=== PATIENT | male | born 1955 | race Caucasian/White ===

== ENCOUNTER → 2018-07-05 07:38 | Day surgery (SDC) | payer BC ==
--- NOTE | 2018-07-01 20:11 | HP ---
CC: Dr. Fito Bernstein; Dr. Florentin Gomes * ADMITTING HISTORY AND PHYSICAL: DATE OF ADMISSION: 07/05/18 ADMITTING DIAGNOSES: 1. Gross hematuria. 2. Bladder tumor. PLANNED PROCEDURE: Transurethral resection of bladder tumor, possible left stent insertion. SURGEON: Dr. Gomes. HISTORY OF PRESENT ILLNESS: Deven Silveira is a 63-year-old former smoker who has had episodic gross hematuria for several months, but did not seek attention up until recently. Cystoscopy revealed what appears to be superficial bladder tumors (although appear high-grade on visual appearance) in the left lateral wall of the bladder with a blood clot adherent to one of the tumors making it difficult to assess the size of the tumors. A CT urogram was obtained which did not reveal any evidence of upper tract disease and he is known to have a left-sided bladder diverticulum, which did not have any lesions or tumors within it on office cystoscopy. PAST MEDICAL HISTORY: Significant for: 1. Hypertension. 2. High cholesterol. 3. Asthma. MEDICATIONS ON ADMISSION: 1. Verapamil 80 mg twice a day. 2. Bupropion 150 mg twice a day. 3. Zyrtec p.r.n. 4. Montelukast 10 mg daily. 5. Beclovent inhaler p.r.n. 6. Rosuvastatin 5 mg daily. ALLERGIES: No known drug allergies. SOCIAL HISTORY: Smoking History: He is a former smoker, who quit 25 years ago. PHYSICAL EXAMINATION GENERAL: Reveals a pleasant middle-aged gentleman. VITAL SIGNS: Blood pressure is 112/80, pulse 103 per minute and regular, oxygen saturation 98% on room air. LUNGS: Clear bilaterally. CARDIOVASCULAR EXAM: Regular rate and rhythm. S1, S2. ABDOMEN: Soft without masses. IMPRESSION: A 63-year-old gentleman with bladder tumor. PLAN/RECOMMENDATIONS: Planned procedure is transurethral resection of bladder tumor, possible left stent insertion. [id number]/[facility] #: [id number] [facility]
[~2018-07-05 07:38] MED LIST: Acetaminophen TAB* 325 MG ONE; Acetaminophen TAB* 325 MG PO ONE; Buffered Lidocaine 1% SYRIN* 1 ML/SYRINGE INTRADERM ONE; Chloroprocaine 2%* 20 ML VIAL ONE; Dexamethasone IV* 4 MG/ML 1 ML (4 MG) ONE; DiMENhydriNATE IV* 50 MG/ML VIAL IV PUSH PRN; Famotidine IV* 10 MG/ML 2 ML (20 mg) ONE; Furosemide IV* 10 MG/ML 2 ML VIAL (20 MG) ONE; HYDROcodone/ACETAMIN 5-325 MG* 1 TAB ONE; HYDROcodone/ACETAMIN 5-325 MG* 1 TAB PO PRN; Iohexol 180 (CONTRAST) 10 ML SDV IV ONE; Lactated Ringers 1000 ML Bag* 1,000 ML IV SCH; Levalbuterol 0.63MG/3ML NEB* UNIT OF USE INH PRN; Midazolam* 1 MG/ML 2 ML VIAL (2 MG) ONE; Naloxone* 0.4 MG/ML 1 ML VIAL IV PRN; Ondansetron INJ* 2 MG/ML VIAL IV PRN; PROCHLORPERAZINE INJ 5 MG/ML 2 ML VIAL IV PRN; cefTRIAXone(*) 2 GM ADDV.VIAL IVPB ONE; diPHENhydraMINE IV* 50 MG/ML 1 ml VIAL (BENADRYL) IV PRN; fentaNYL* 50 MCG/ML 2 ML VIAL (100 MCG VIAL) ONE; mitoMYcin PWD* 40 MG in Sterile Water for Inj* 40 ML IRRIGATION ONE
[2018-07-05] MEDS: fentaNYL* 50 MCG/ML 2 ML VIAL (100 MCG VIAL) IV PRN ×2 (12:18→13:08)
[2018-07-05 16:03] VITALS: BP 128/91
--- NOTE | 2018-07-05 16:15 | OP ---
CC: Dr. Fito Bernstein; Dr. Florentin Gomes OPERATIVE SUMMARY: DATE OF OPERATION: 07/05/18 DATE OF : 55 SURGEON: Florentin Gomes MD ANESTHESIOLOGIST: Dr. Ewing. ANESTHESIA: Spinal. PRE-OP DIAGNOSIS: Bladder tumors. POST-OP DIAGNOSIS: Bladder tumors. OPERATIVE PROCEDURE: Cystoscopy, transurethral resection of bladder tumors (aggregate greater than 5 cm). COMPLICATIONS: None. BLOOD LOSS: Approximately 50 cc. OPERATIVE FINDINGS: 1. Mild regrowth of solid appearing tissue, prostatic urethra (status post transurethral resection o f prostate many years ago). 2. 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 3. Bladder diverticulum, left lateral wall. INDICATIONS: Deven Silveira is a 63-year-old gentleman who has had episodic gross hematuria and was rec ently seen in followup after a gap of over a year. He was noted to have above described bladder tumo rs and also has been previously known to have a fairly large left-sided bladder diverticulum. POSTOPERATIVE CONDITION: Stable. CATHETER: A 20-Frisian Haynes. DESCRIPTION OF PROCEDURE: After induction of spinal anesthesia, the patient was placed in dorsal lit hotomy position. Sequential compression devices were in place and functioning. Initial cystoscopy r evealed a normal-appearing urethra. In the prostatic urethra, there were some solid nodules of regro wth of prostate tissue, but the bladder neck was still fairly open from the prior transurethral resec tion many years ago. The bladder was entered and examined. At the junction of the posterior and left lateral wall, there was a large bladder diverticulum and the left ureteral orifice is located at the inferior edge of thi s diverticulum. 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 On the posterior wall on the right side of the bladder also was a small diverticulum with slightly regular mucosa. A guidewire was introduced into the left orifice and was kept in place throughout the procedure. Next using biopsy forceps, plastic products sales representative biopsies were obtained and sent for histopathology. Next, the resectoscope was introduced and all of the visible tumors were resected and/or fulgurated. At th e end of the procedure, there was no remaining visible tumor. Hemostasis appeared satisfactory and t here was no evidence of bladder perforation. The guidewire was removed and I could see urine freely effluxing from the left orifice, so I did not need to place a left stent. A 20-Frisian Haynes was plac ed for bladder drainage. The patient tolerated the procedure satisfactorily and was transferred back to the recovery area in stable condition. [id number]/[facility] #: [id number]
== END | disposition home or self-care (01) ==
LOC: OR 07:38
PROVIDERS: ATTEND Urology
DX: N32.9 Bladder disorder, unspecified (principal); R31.0 Gross hematuria; Z87.891 Personal history of nicotine dependence; E03.9 Hypothyroidism, unspecified; E78.00 Pure hypercholesterolemia, unspecified; J30.2 Other seasonal allergic rhinitis
CPT/HCPCS: 74420; 88305; 88341; 88342; 88360; A9270-GY; J0696; J1100; J1940; J2250; J2400; J3010; J9280

== ENCOUNTER 2019-06-23 18:21 | Emergency (ER) | payer BC ==
--- NOTE | 2019-06-23 18:33 | ED ---
Lower Extremity - HPI Summary HPI Summary: The patient is a 64 y/o male arriving by ambulance to [facility] with chief complaint of pain in the right after sustaining a fall tonight. He reports that he was walking on uneven ground, causing him to fall. He landed directly onto the right knee as he braced himself with his right hand. He now has pain in the knee as he is unable to move it without pain, and he has kept it bent. There is mild soreness in the right wrist, but there is no decreased ROM. There is an abrasion to the knee and also his nose where he scratched it while falling. Pain is rated 4/10 in severity at rest. PMHx: thyroid disease, HLD, asthma, GERD , arthritis, osteoporosis. Former smoker, occasional EtOH, no substance use. Medications reviewed. Allergies noted. - History of Current Complaint Stated Complaint: FALL/RT KNEE PAIN PER EMS Time Seen by Provider: 06/23/19 18:25 Hx Obtained From: Patient Mechanism Of Injury: Fall From A Standing Position - directly onto knee Onset of Pain: Immediate Onset/Duration: Still Present Severity Initially: Moderate Severity Currently: Moderate Pain Intensity: 4 Pain Scale Used: 0-10 Numeric Timing: Constant Location: Is Discrete @ - right knee Character Of Pain: Sharp Associated Signs And Symptoms: Positive: Knee Pain - right, Other - decreased ROM of right knee, abrasions to right knee and nose, pain in right wrist without decreased ROM Aggravating Factor(s): Movement Alleviating Factor(s): Other - bent knee Able to Bear Weight: No - Allergies/Home Medications Allergies/Adverse Reactions: Allergies Allergy/AdvReac Type Severity Reaction Status Date / Time No Known Allergies Allergy Verified 07/05/18 08:05 PMH/Surg Hx/FS Hx/Imm Hx Endocrine/Hematology History: Reports: Hx Thyroid Disease Denies: Hx Diabetes Cardiovascular History: Reports: Hx Hypercholesterolemia, Other Cardiovascular Problems/Disorders - high cholesterol Denies: Hx Hypertension, Hx Pacemaker/ICD Respiratory History: Reports: Hx Asthma GI History: Reports: Hx Gastroesophageal Reflux Disease - hx of- became a aguilera- resolved, Other GI Disorders - inguinal hernias History: Denies: Hx Renal Disease Musculoskeletal History: Reports: Hx Arthritis - hip, Hx Osteoporosis, Hx Tendonitis - bilat arm, elbow, shoulder, Other Musculoskeletal History - osteoporosis Sensory History: Reports: Hx Contacts or Glasses - glasses for reading Denies: Hx Hearing Aid Opthamlomology History: Reports: Hx Contacts or Glasses - glasses for reading Neurological History: Reports: Hx Migraine - visual migraine- on verapamil- helps- none in 6 months Psychiatric History: Reports: Hx Depression - seasonal, Other Psychiatric Issues /Disorders - S.A.D. Denies: Hx Panic Disorder - Cancer History Cancer Type, Location and Year: BLADDER 2019 Hx Chemotherapy: Yes - INJECTIONS DONE SINCE AUGUST - Surgical History Surgery Procedure, Year, and Place: FRACTURED SKULL-NO PLATES JUST LIFTED TO LET HEAL,. LT HIP FRACTURE- NO IMPLANT LET HEAL;. TURP;. BLADDER ABLATION FOR CANCER 07/2018;. HERNIA REPAIR X 3 ONE WITH MESH Hx Anesthesia Reactions: No Infectious Disease History: Reports: Hx Hepatitis - Hep B as a child from blood transfusion- resolved Denies: History Other Infectious Disease - Family History Known Family History: Positive: Cardiac Disease, Hypertension, Diabetes - Social History Alcohol Use: Occasionally Hx Substance Use: No Substance Use Type: Reports: None Hx Tobacco Use: Yes Smoking Status (MU): Former Smoker Have You Smoked in the Last Year: No Review of Systems Positive: Arthralgia - right knee, Decreased ROM - right knee secondary to pain , Other - soreness in right wrist but no decreased ROM Positive: Other - abrasions to nose and right knee All Other Systems Reviewed And Are Negative: Yes Physical Exam - Summary Physical Exam Summary: Appearance: The patient is well-nourished in no acute distress and in no acute pain. Skin: The skin is warm and dry, and skin color reflects adequate perfusion. HEENT: The head is normocephalic and atraumatic. The pupils are equal and reactive. The conjunctivae are clear and without drainage. Nares are patent and without drainage. Mouth reveals moist mucous membranes, and the throat is without erythema and exudate. The external ears are intact. The ear canals are patent and without drainage. The tympanic membranes are intact. Neck: The neck is supple with full range of motion and non-tender. There are no carotid bruits. There is no neck vein distension. Respiratory: Chest is non-tender. Lungs are clear to auscultation and breath sounds are symmetrical and equal. Cardiovascular: Heart is regular rate and rhythm. There is no murmur or rub auscultated. There is no peripheral edema and pulses are symmetrical and equal. Abdomen: The abdomen is soft and non-tender. There are normal bowel sounds heard in all four quadrants and there is no organomegaly palpated. Musculoskeletal: There is no back tenderness noted. The right patella is high- riding with a defect inferior to it. Extremities are otherwise non-tender with full range of motion. There is good capillary refill. There is no peripheral edema or calf tenderness elicited. Neurological: Patient is alert and oriented to person, place and time. The patient has symmetrical motor strength in all four extremities. Cranial nerves are grossly intact. Deep tendon reflexes are symmetrical and equal in all four extremities. Psychiatric: The patient has an appropriate affect and does not exhibit any anxiety or depression. Triage Information Reviewed: Yes Vital Signs Reviewed: Yes Procedures - Sedation Patient Received Moderate/Deep Sedation with Procedure: No Diagnostics - Laboratory Lab Statement: Any lab studies that have been ordered have been reviewed, and results considered in the medical decision making process. - Radiology R Knee XR Radiology Interpretation Completed By: ED Physician Summary of Radiographic Findings: Comminuted patellar fracture. ED physician has reviewed and interpreted this report. Pending official read. Re-Evaluation - Re-Evaluation First Eval Re-Evaluation Time: 20:15 Comment: We discussed results and plan for discharge. Lower Extremity Course/Dx - Course Course Of Treatment: Mr. Silveira sustained a badly comminuted patellar fracture. He was placed in a knee immobilizer but still had pain when attempting to ambulate. He was given crutches and instructed to be nonweightbearing. He was beginning to get surface swelling during his stay here and I recommended icing and elevating it and following up with orthopedics first of the week. I offered him pain medication but he declined. - Diagnoses Provider Diagnoses: Patellar fracture Discharge ED - Sign-Out/Discharge Documenting (check all that apply): Patient Departure - Patient will be discharged home. - Discharge Plan Condition: Stable Disposition: HOME Patient Education Materials: Patellar Fracture (ED) Referrals: Fito Bernstein MD [Primary Care Provider] - 3 Days Brody Chew MD [Medical Doctor] - 1 Week Additional Instructions: Follow up with orthopedics in one week concerning todays visit. Return to the emergency department for any new or worsening symptoms. - Billing Disposition and Condition Condition: STABLE Disposition: Home - Attestation Statements Document Initiated by Scribe: Yes Documenting Scribe: Andressa Calloway Provider For Whom Meagan is Documenting (Include Credential): Dr. Pasha Wilks MD Scribe Attestation: I, Andressa Calloway, scribed for Dr. Pasha Wilks MD on 06/23/19 at 2128. Scribe Documentation Reviewed: Yes Provider Attestation: The documentation as recorded by the Andressa easton accurately reflects the service I personally performed and the decisions made by me, Dr. Pasha Wilks MD Status of Scribe Document: Viewed
--- OUTSIDE RECORDS SUMMARY | 2019-06-23 18:46 | XMS REPORT | Continuity of Care Document ---
:1955 External Reference #:[id number] Author Name Brice Lucero MD Address [address] [place] [address] Care Team Providers Name Role Phone Fito Bernstein M.D. 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 quit at age 43 Tobacco Use Start: Unknown Never Smoked Cigars Tobacco Use Start: Unknown Never Smoked A Pipe Smokeless Tobacco Never Used Smokeless Tobacco ETOH Use Currently occasionally consumes alcohol Tobacco Use Start: Unknown End: Patient is a former Unknown smoker Allergies, Adverse Reactions, Alerts Description No Known Drug Allergies Medications Active Medications SIG Qnty Indications Ordering Provider Date Vitamin D3 One PO qd Self 2000mg Vitamin B12 One PO qd Self 1000mg Ibuprofen prn Self 200mg Zyrtec Allergy One po during Self 10mg peak allergy season ( spring -summer ) Rosuvastatin Calcium Take 1 Tablet By Unknown 5mg Mouth Every Day Tablets Levothyroxine Sodium Take 1 Tablet By Unknown 100mcg Mouth Every Day Tablets Montelukast Sodium Take 1 Tablet By Unknown 10mg Mouth Every Day Tablets Verapamil HCL Take 1 Tablet By Unknown 80mg Tablets Mouth Every Morning And Take 2 Tablets By Mouth Every Evening Bupropion Hydrochloride Fito Bernstein M.D. ER (XL) 150mg Tablets ER 24HR Alendronate Sodium Malcolm Mullen M.D. 70mg Tablets Immunizations Description No Information Available Vital Signs Date Vital Result Comment 05/05/2019 12:00pm Weight 180.00 lb Weight 81.648 kg Height 71 inches 5'11" Height in cm's 180.3 cm BMI (Body Mass Index) 25.1 kg/m2 12/20/2013 8:31am BP Systolic 131 mmHg BP Diastolic 92 mmHg Heart Rate 67 /min Respiratory Rate 17 /min Weight 179.00 lb Weight 81.194 kg Height 71.4 inches 5'11.40" Height in cm's 181.4 cm BMI (Body Mass Index) 24.7 kg/m2 Results Description No Information Available Procedures Description No Information Available Medical Devices Description No Information Available Encounters Description No Information Available Assessments Date Code Description Provider 05/05/2019 H60.543 Acute eczematoid otitis externa, bilateral Brice Lucero MD 05/05/2019 H61.23 Impacted cerumen, bilateral Brice Lucero MD Plan of Treatment 05/05/2019 - Brice Lucero MDH60.543 Acute eczematoid otitis externa, bilateralComments:Patient was advised to use some hydrocortisone ointment to the ear twice a dayH61.23 Impacted cerumen, bilateralComments:The patient's cerumen impaction was cleaned without difficulty. Functional Status Description No Information Available Mental Status Description No Information Available Referrals Description No Information Available
[2019-06-23 21:07] VITALS: BP 140/88
== END 2019-06-23 20:50 | disposition home or self-care (01) ==
LOC: ED 18:21
DX: S82.041A Displaced comminuted fracture of right patella, initial encounter for closed fracture (principal); W18.39XA Other fall on same level, initial encounter; Y92.9 Unspecified place or not applicable; E07.9 Disorder of thyroid, unspecified; E78.00 Pure hypercholesterolemia, unspecified; J45.909 Unspecified asthma, uncomplicated; K21.9 Gastro-esophageal reflux disease without esophagitis; F32.9 Major depressive disorder, single episode, unspecified; Z85.51 Personal history of malignant neoplasm of bladder; Z86.19 Personal history of other infectious and parasitic diseases; Z87.891 Personal history of nicotine dependence
CPT/HCPCS: 99283

== ENCOUNTER → 2019-06-29 11:19 | Day surgery (SDC) | payer BC ==
--- NOTE | 2019-06-27 08:23 | HP ---
HISTORY AND PHYSICAL: DATE OF ADMISSION/SURGERY: 06/29/19 DATE OF OFFICE VISIT: 06/24/19 SURGEON: Pat Kumar MD.* (DICTATED BY DANETTE GARCIA) PROCEDURE: ORIF of the right patella. CHIEF COMPLAINT: Right knee pain. HISTORY OF PRESENT ILLNESS: Mr. Silveira is a 64-year-old gentleman who tripped walking up a sidewalk yesterday, landing directly on his right knee. He immediately had pain and swelling. He went to the emergency room where x-rays were taken, it confirmed a patellar fracture. PAST MEDICAL HISTORY: 1. Asthma. 2. High cholesterol. 3. History of bladder cancer. PAST SURGICAL HISTORY: 1. TURP. 2. Tumor removal from the bladder. 3. Hernia repairs. CURRENT MEDICATIONS: 1. Verapamil 80 mg 1 tab in the morning, 2 tabs at night. 2. Wellbutrin 150 mg a day. 3. Albuterol sulfate as needed. 4. Aspirin 81 mg a day. 5. Alendronate sodium 35 mg every week. 6. Rosuvastatin calcium 5 mg a day. 7. Vitamin D. 8. Montelukast sodium 10 mg a day. 9. Levothyroxine 100 mcg a day. 10. Cetirizine 10 mg a day. ALLERGIES: No known drug allergies. FAMILY HISTORY: Cancer, diabetes, and stroke. SOCIAL HISTORY: He is a 64-year-old gentleman, lives with his . He does not smoke or use drugs. Uses occasional alcohol. REVIEW OF SYSTEMS: A complete 14-point review of systems was reviewed with the patient. Positive for asthma, some thyroid disease, and a history of hepatitis B which was treated years ago. He denies a history of DVT, kidney disease, or anesthesia problems. PHYSICAL EXAMINATION GENERAL: He is well developed, well nourished, in no acute distress. He is alert and oriented x3. VITAL SIGNS: He stands 71.5 inches tall, weighs 168 pounds. His blood pressure is 122/60, and his heart rate is 90. HEENT: Normocephalic, atraumatic. NECK: Supple. No palpable lymph nodes. PULMONARY: The lungs are clear to auscultation bilaterally. CARDIO: Regular rate and rhythm. Strong S1, S2. ABDOMEN: Soft, nontender, nondistended. NEUROLOGICAL: He is alert and oriented x3. MUSCULOSKELETAL: Right lower extremity, the skin is intact. There is a large hematoma of the right knee. He is able to straight leg raise. He is able to dorsiflex and plantarflex. He has 2+ dorsalis pedis pulse. There is intact sensation. ASSESSMENT AND PLAN: Mr. Silveira is a 64-year-old gentleman with a fracture of the right patella, which occurred on 06/23/19. He has elected to proceed with an ORIF of the right patella, which is scheduled with Dr. Kumar next 06/29/19. DANETTE GARCIA [id number]/[facility] #: [id number] MTDD
[~2019-06-29 11:19] MED LIST changes: +Acetaminophen IV 1GM/100ML * 100 ML ONE; -Acetaminophen TAB* 325 MG ONE; -Acetaminophen TAB* 325 MG PO ONE; -Chloroprocaine 2%* 20 ML VIAL ONE; +Dexamethasone IV* 4 MG/ML 1 ML (4 MG) IV SLOW PU ONE; +Famotidine IV* 10 MG/ML 2 ML (20 mg) IV ONE; -Furosemide IV* 10 MG/ML 2 ML VIAL (20 MG) ONE; -HYDROcodone/ACETAMIN 5-325 MG* 1 TAB ONE; -HYDROcodone/ACETAMIN 5-325 MG* 1 TAB PO PRN; +HYDROmorphone INJ1* 1 MG/ML SYRINGE IV PRN; -Iohexol 180 (CONTRAST) 10 ML SDV IV ONE; +KETAMINE HCL* 50 MG/ML 10 ML VIAL ONE; +Ketorolac INJ* 30 MG/ML 1 ML VIAL ONE; +Levalbuterol 0.63MG/3ML NEB* UNIT OF USE INH ONE; -Levalbuterol 0.63MG/3ML NEB* UNIT OF USE INH PRN; +Lidocaine 2% PF * 5 ML VIAL ONE; +Metoprolol Tartrate IV* 1 MG/ML 5 ML VIAL ONE; -Midazolam* 1 MG/ML 2 ML VIAL (2 MG) ONE; +Midazolam* 1 MG/ML 5 ML VIAL (5 MG) ONE; -Ondansetron INJ* 2 MG/ML VIAL IV PRN; +Ondansetron ODT TAB* 4 MG ONE; +Ondansetron ODT TAB* 4 MG PO ONE; +Propofol* 10 MG/ML 20 ML BTL ONE; +Propofol* 500 MG/50 ML BTL ONE; +ROPIVACAINE 5 MG/ML 30 ML BTL (0.5%) ONE; +ceFAZolin 2 GM PREMIX in ORs 2 GM/50 ML BAG ONE; -cefTRIAXone(*) 2 GM ADDV.VIAL IVPB ONE; -diPHENhydraMINE IV* 50 MG/ML 1 ml VIAL (BENADRYL) IV PRN; +hydrALAZINE IV* 20 MG/ML VIAL ONE; -mitoMYcin PWD* 40 MG in Sterile Water for Inj* 40 ML IRRIGATION ONE; +oxyCODONE TAB* 5 MG TAB ONE; +oxyCODONE TAB* 5 MG TAB PO PRN
[2019-06-29] MEDS: fentaNYL* 50 MCG/ML 2 ML VIAL (100 MCG VIAL) IV PRN ×3 (16:02→16:54)
[2019-06-29 21:01] VITALS: BP 112/74
--- NOTE | 2019-06-29 23:09 | OP ---
DATE OF OPERATION: 06/29/19 - [facility] DATE OF : 55 ATTENDING SURGEON: Pat Kumar MD DRAMATIC ART TEACHER: DANETTE Mcpherson. Adryandelicia did help throughout the procedure with preparation of the leg, wound retraction and manipulation of the knee and wound closure. ANESTHESIOLOGIST: Dr. Lr. ANESTHESIA: Spinal. PRE-OP DIAGNOSIS: Right comminuted closed patellar fracture. POST-OP DIAGNOSIS: Right comminuted closed patellar fracture. OPERATIVE PROCEDURE: Right patellar fracture open reduction internal fixation. BRIEF HISTORY/INDICATIONS: Mr. Silveira is a 64-year-old gentleman who had a fall on 06/23/19 directly on to his right knee. He immediately had pain and was seen at the emergency room. He was diagnosed with a patellar fracture. I saw him in orthopedic consultation on 06/24/19. I did offer him operative and nonoperative treatment options. He wished to have open reduction internal fixation of the fracture. The patient was cleared preoperatively by his primary care physician and we obtained a CT for better preop planning. He was found to have a comminuted fracture of the patella in a stellate pattern. The patient understood the risks of the surgery included, but were not limited to bleeding, infection, damage to nearby structures, continued pain, need for further surgery, hardware failure, loss of reduction, knee stiffness, stroke, heart attack, blood clot and . He wished to proceed. INTRAOPERATIVE FINDINGS: Intraoperatively, the patient was noted to have a comminuted fracture of the patella. There was no intraarticular loose body. He had tearing of the medial retinaculum. Two largest fracture fragments had a transverse fracture pattern. A large portion of the lateral facet was completely comminuted. COMPLICATIONS: None. ESTIMATED BLOOD LOSS: 50 cc. TOURNIQUET TIME: 46 minutes. HARDWARE USED: This is Arthrex FiberTape patella fracture set, two 4.0 cannulated partially threaded screws length of 40 mm and 42 mm were used. Two 2 -mm FiberTapes were used, 1 for a tension band type construct and 1 for a cerclage construct. DESCRIPTION OF PROCEDURE: Mr. Silveira was identified in the preanesthesia unit. His right lower extremity was marked as the correct operative side. Informed consent was signed and placed in the chart. The patient was taken to the operating room and placed under anesthesia without difficulty. Right lower extremity was prepped and draped in the usual sterile fashion after a tourniquet was placed. Preop timeout was made to correctly identify the patient' s side and site. Appropriate perioperative antibiotics were given within 1 hour of incision. Tourniquet was inflated and total tourniquet time for this procedure was 46 minutes. A straight midline incision was made with a 10 blade and carried down to the extensor mechanism. Significant hematoma was encountered and excised. There was obvious disruption of the extensor mechanism in a transverse pattern along the mid portion of the patella. There was disruption of the medial retinaculum. Using this disruption as the starting point, a standard medial parapatellar arthrotomy was made with a 10 blade. The hematoma in the joint was copiously irrigated. The patella fracture site was visible and any hematoma or fibrous tissue/clot was carefully removed with a curette and irrigation. Evaluation of the fracture pattern showed the two largest pieces had a transverse fracture pattern. There was significant comminution laterally. Decision was made to place a tension band construct with cannulated screws across the 2 main fracture fragments and cerclage the entire patella. The Arthrex patella fracture set was used. First, pointed forceps were used to obtain a satisfactory fracture reduction. Multiple C-arm views confirmed a satisfactory fracture reduction on AP and lateral views. Two K wires were placed longitudinally across the two main fracture fragments of the patella medially. AP and lateral C-arm views confirmed satisfactory placement of the K wires. Over drilling over the K wires was performed. Two cannulated partially threaded 4.0 cannulated screws were then placed of length 40 and 42 mm. The K wires were removed. Multiple AP and lateral C-arm views confirmed satisfactory reduction of the fracture. Next, the 2-mm FiberTape was threaded through this cannulated screws and tied in a tension band construct. AP and lateral C-arm views confirmed that this did improve the fracture reduction anteriorly. The knee joint was copiously irrigated with sterile saline. The medial arthrotomy and torn retinaculum was repaired using #1 Vicryls. A new 2-mm FiberTape was then threaded under the quadriceps and patellar tendons. This was tied in a cerclage fashion to further reduce some of the lateral comminution. Final AP and lateral C-arm views showed satisfactory reduction of the fracture and a smooth articular surface on the lateral view. The knee was copiously irrigated with sterile saline. The incision was closed in a layered fashion using 0 and 2-0 Vicryls. Skin was closed using running 3- 0 Monocryl and Dermabond. Sterile Adaptic, 4x4s and Webril were used to cover the incision. Pedro wrap and cold pack were placed over this. A knee immobilizer was placed. The patient's anesthesia was reversed without difficulty. He was taken to the PACU in stable condition. Intended weight-bearing will be weightbearing as tolerated. Intended DVT prophylaxis will be aspirin. He will keep the knee in extension at all times in the knee immobilizer. He will follow up with me in 1 week's time for a wound check. [id number]/[facility] #: [id number] LEIGHANN
== END | disposition home or self-care (01) ==
LOC: OR 11:19
PROVIDERS: ATTEND Orthopaedic Surgery Adult Reconstructive Orthopaedic Surgery
DX: S82.041A Displaced comminuted fracture of right patella, initial encounter for closed fracture (principal); M25.561 Pain in right knee; M25.461 Effusion, right knee; J45.909 Unspecified asthma, uncomplicated; E78.00 Pure hypercholesterolemia, unspecified; E03.9 Hypothyroidism, unspecified; M81.0 Age-related osteoporosis without current pathological fracture; W01.198A Fall on same level from slipping, tripping and stumbling with subsequent striking against other object, initial encounter; Y93.01 Activity, walking, marching and hiking; Y92.480 Sidewalk as the place of occurrence of the external cause; Z85.51 Personal history of malignant neoplasm of bladder; Z79.51 Long term (current) use of inhaled steroids; Z87.891 Personal history of nicotine dependence; Z79.82 Long term (current) use of aspirin
CPT/HCPCS: 76000; A9270-GY; C1713; J0360; J0690; J1100; J1885; J2250; J2704; J2795; J3010; J3490